=== PATIENT | male | born 1970 | race Caucasian/White ===

== ENCOUNTER 2016-07-09 10:44 | Day surgery (SDC) | payer OTHER ==
[~2016-07-09] VITALS: Ht 170.2 cm; Wt 157.7 kg
[~2016-07-09 10:44] MED LIST: ROBAXIN750 MG PO; ULTRAM50 MG PO; VOLTAREN-XR100 MG PO; ZESTORETIC 20-1 EAC2 PO
[2016-07-09 11:56] VITALS: BP 134/77
[2016-07-09 18:38] VITALS: BP 114/62
[2016-07-09 19:14] VITALS: BP 136/76
== END 2016-07-09 19:29 | disposition home or self-care (01) ==
LOC: SDC 10:44
DX: S46.012A Strain of muscle(s) and tendon(s) of the rotator cuff of left shoulder, initial encounter (principal); S46.112A Strain of muscle, fascia and tendon of long head of biceps, left arm, initial encounter; M25.512 Pain in left shoulder; Z68.43 Body mass index [BMI] 50.0-59.9, adult; Z85.828 Personal history of other malignant neoplasm of skin; W01.0XXA Fall on same level from slipping, tripping and stumbling without subsequent striking against object, initial encounter; Y92.89 Other specified places as the place of occurrence of the external cause; Y99.0 Civilian activity done for income or pay; Y93.9 Activity, unspecified
CPT/HCPCS: C1713; J0171; J0330; J0690; J2250; J2405; J2710; J2795; J3010